=== PATIENT | male | born 1975 | race American Indian/Alaskan Native ===

== ENCOUNTER 2019-07-11 09:42 | Emergency (ER) | payer BC ==
[2019-07-11 10:06] VITALS: BP 144/86
--- NOTE | 2019-07-11 12:31 | Emergency Department Report ---
Minor Respiratory - HPI Chief Complaint: Upper Respiratory Infection Stated Complaint: FLU SYM/TINGLE IN BACK Time Seen by Provider: 07/11/19 12:29 Duration: 3 Days Pain Location: Chest Severity: mild Minor Respiratory: Yes Able to Tolerate Fluids, Yes Cough, No Rhinorrhea, No Sore Throat, No Ear Pain, No Sick Contacts, No Hemoptysis, No Chest Pain, No Shortness of Breath, No Fever Other History: Patient is a 43-year-old -German male who comes to the ER complaining of cough and body aches for several days. He also endorses a backache. He is a smoker and reports yellow sputum. He denies fever or chills. He has no tachycardia or hypotension on assessment. Patient has rhonchi on initial exam. X-ray will be completed to rule out pneumonia. ED Review of Systems ROS: Stated complaint: FLU SYM/TINGLE IN BACK Other details as noted in HPI Comment: All other systems reviewed and negative ED Past Medical Hx - Past Medical History Previous Medical History?: No - Surgical History Past Surgical History?: Yes Additional Surgical History: Right knee. Left elbow. Right eye - Family History Family history: no significant - Social History Smoking Status: Current Every Day Smoker Substance Use Type: None Minor Respiratory Exam - Exam General: Vital signs noted. No distress. Alert and acting appropriately. HEENT: Yes Moist Mucous Membranes, No Pharyngeal Erythema, No Pharyngeal Exudates, No Rhinorrhea, No Conjuctival Injection, No Frontal Tenderness, No Maxillary Tenderness Ear: Neither TM Bulge, Neither TM Erythema, Neither EAC Pain, Neither EAC Discharge Neck: Yes Supple, No Adenopathy Lungs: Yes Good Air Exchange, Yes Ronchi, Yes Cough, No Wheezes, No Stridor, No Labored Respirations, No Retractions, No Use of Accessory Muscles, No Other Abnormal Lung Sounds Heart: Yes Regular, No Murmur Abdomen: Yes Normal Bowel Sounds, No Tenderness, No Peritoneal Signs Skin: No Rash, No Edema Neurologic: Alert and oriented, no deficits. Musculoskeletal: Unremarkable. ED Course Vital Signs 07/11/19 10:03 Temperature 98.8 F Pulse Rate 84 Respiratory 20 Rate Blood Pressure 144/86 O2 Sat by Pulse 100 Oximetry ED Medical Decision Making - Radiology Data Radiology results: report reviewed, image reviewed NEG - Medical Decision Making X-ray negative. Patient being discharged to home with referral to primary care. Vital Signs 07/11/19 10:03 Temperature 98.8 F Pulse Rate 84 Respiratory 20 Rate Blood Pressure 144/86 O2 Sat by Pulse 100 Oximetry - Differential Diagnosis ro pna Critical care attestation.: If time is entered above; I have spent that time in minutes in the direct care of this critically ill patient, excluding procedure time. ED Disposition Clinical Impression: Cough, Back pain, Smoker Disposition: -01 TO HOME OR SELFCARE Is pt being admited?: No Does the pt Need Aspirin: No Condition: Stable Additional Instructions: STAY WELL HYDRATED STOP SMOKING FOLLOW UP WITH PCP REFERRAL BELOW MOTRIN OR TYLENOL FOR BACK PAIN OVER THE COUNTER SYMPTOM RELIEF IF NEEDED Referrals: PEPE GARAY MD [Staff Physician] - 3-5 Days Time of Disposition: 12:41
--- NOTE | 2019-07-11 13:11 | XRay Report ---
CHEST 2 VIEWS INDICATION / CLINICAL INFORMATION: cough with yellow sputum. COMPARISON: None available. FINDINGS: SUPPORT DEVICES: None. HEART / MEDIASTINUM: No significant abnormality. LUNGS / PLEURA: No significant pulmonary or pleural abnormality. No pneumothorax. ADDITIONAL FINDINGS: No significant additional findings. IMPRESSION: 1. No acute findings. Signer Name: Francis Bush MD Signed: 07/11/2019 1:06 PM Workstation Name: [id number]
== END 2019-07-11 13:08 | disposition home or self-care (01) ==
LOC: ED 09:42
DX: M54.9 Dorsalgia, unspecified (principal); R05 Cough; R20.2 Paresthesia of skin; F17.200 Nicotine dependence, unspecified, uncomplicated; Z98.890 Other specified postprocedural states
CPT/HCPCS: 71046; 99283